=== PATIENT | male | born 1960 | race Caucasian/White ===

== ENCOUNTER → 2020-04-26 | Day surgery (SDC) | payer OTHER ==
[~2020-04-26] MED LIST: ALLOPURINOL100 MG PO; FENTANYL CITRATE/PF 100MCG/2 ML INJ ONE; GABAPENTIN300 MG PO; GLYCOPYRROLATE INJ 0.2 MG/ML VIAL ONE; IOPAMIDOL 200 MG/ML 20 ML VIAL IT ONE; KETAMINE HCL INJ 50 MG/ML 10 ML VIAL ONE; LIDOCAINE HCL 1% 30ML-PF VIAL ONE; LIDOCAINE HCL 2% LOCAL INJ 5 ML SDV VIAL INJ ONE; LOSARTAN POTAS100 MG PO; METFORMIN HCL500 MG PO; MIDAZOLAM HCL 2 MG/2 ML VIAL ONE; PRAVASTATIN SOD10 MG PO; PROPOFOL IV EMULSION 10 MG/ML 20 ML VIAL ONE; TRIAMCINOLONE ACET 40 MG/ML VIAL ONE
[2020-04-26 09:10] VITALS: BP 130/87
== END | disposition home or self-care (01) ==
LOC: OR 05:57
PROVIDERS: ATTEND Physical Medicine & Rehabilitation Pain Medicine
DX: M47.896 Other spondylosis, lumbar region (principal); I10 Essential (primary) hypertension; E11.9 Type 2 diabetes mellitus without complications; R93.7 Abnormal findings on diagnostic imaging of other parts of musculoskeletal system; Z01.812 Encounter for preprocedural laboratory examination; Z20.828 Contact with and (suspected) exposure to other viral communicable diseases; Z79.84 Long term (current) use of oral hypoglycemic drugs; Z68.33 Body mass index [BMI] 33.0-33.9, adult
CPT/HCPCS: 36415; 77003; 82948; 93005; J2001; J2250; J3010; J3301; Q9967; U0002